=== PATIENT | male | born 1935 | race Caucasian/White ===

== ENCOUNTER 2018-12-28 06:30 | Day surgery (SDC) | payer OTHER ==
[~2018-12-28 06:30] MED LIST: ALTACE10 MG PO; ASA81 MG PO; TENORMIN25 MG PO; ZOCOR40 MG PO
== END 2018-12-28 09:45 | disposition home or self-care (01) ==
LOC: CIR.AMB 06:30
DX: M65.342 Trigger finger, left ring finger (principal)